=== PATIENT | female | born 1945 | race Caucasian/White ===

== ENCOUNTER 2019-05-20 16:35 | Emergency (ER) | payer MEDICARE, OTHER, MEDICAID ==
[~2019-05-20] VITALS: Ht 152.4 cm; Wt 65.8 kg
--- NOTE | 2019-05-20 16:43 | NUR ---
Dr Cruz is at bedside, MSE in progress
[2019-05-20] MEDS ORDERED: METF-440 PO (16:53)
[2019-05-20] MEDS ORDERED: METO-358 PO (16:53)
[2019-05-20] MEDS ORDERED: RANI150C4 PO (16:53)
[2019-05-20] MEDS ORDERED: ONDANSETRON 4 MG/2 ML VIAL ONE (16:53)
[2019-05-20] MEDS ORDERED: OLME40TA12 PO (16:53)
[2019-05-20] MEDS ORDERED: ASPI-605 PO (16:53)
[2019-05-20] MEDS ORDERED: DONE10TA11 PO (16:53)
[2019-05-20] MEDS ORDERED: ATOR20TA PO (16:53)
[2019-05-20] MEDS ORDERED: MEMA7CAP PO (16:53)
[2019-05-20] MEDS ORDERED: LEVO75TA7 PO (16:53)
[2019-05-20] MEDS ORDERED: FENO50CA2 PO (16:53)
[2019-05-20] MEDS ORDERED: SITA100T PO (16:53)
[2019-05-20 16:58] LABS: BASOPHILS # (AUTO) 0.1 K/uL (0.0-8.0); BASOPHILS % (AUTO) 0.6 % (0.0-2.0); EOSINOPHILS # (AUTO) 0.4 K/uL (0.0-0.7); EOSINOPHILS % (AUTO) 3.4 % (0.0-7.0); HEMATOCRIT 38.4 % (31.2-41.9); HEMOGLOBIN 13.2 g/dL (10.9-14.3); LYMPHOCYTES # (AUTO) 3.1 K/uL (20.0-40.0); LYMPHOCYTES % (AUTO) 30.1 % (20.5-51.5); MEAN CORPUSCULAR HEMOGLOBIN 29.6 uug (24.7-32.8); MEAN CORPUSCULAR HGB CONC 34 g/dL (32.3-35.6); MEAN CORPUSCULAR VOLUME 86.5 fL (75.5-95.3); MONOCYTES # (AUTO) 0.7 K/uL (2.0-10.0); MONOCYTES % (AUTO) 6.9 % (0.0-11.0); NEUTROPHILS # (AUTO) 6.1 K/uL (1.8-8.9); PLATELET COUNT (AUTO) 241 K/uL (179-408); RED BLOOD CELL COUNT(AUTO) 4.44 MIL/uL (3.63-4.92); WHITE BLOOD COUNT (AUTO) 10.4 K/uL (3.8-11.8)
[2019-05-20] MEDS ORDERED: ONDANSETRON 4 MG/2 ML VIAL IV ONE (17:00)
[2019-05-20 17:08] LABS: CREATININE 1.2 mg/dL (0.6-1.3); POTASSIUM 3.9 mmol/L (3.5-5.1)
[2019-05-20 17:13] LABS: BILIRUBIN,DIRECT 0.2 mg/dL (0.0-0.2); BILIRUBIN,TOTAL 0.6 mg/dL (0.2-1.0); TOTAL PROTEIN, SERUM 7.5 g/dL (6.4-8.2)
--- NOTE | 2019-05-20 17:41 | NUR ---
PO challenge started, monitored for vomiting
--- NOTE | 2019-05-20 17:57 | NUR ---
Patient passed po challenge. IV removed. Catheter intact and site benign. Pressure and 4x4 gauze applied to site. No bleeding noted. Patient discharged to home in stable conditon with steady gait. Written and verbal after care instructions given to patient and patient's son. Patient and family verbalized understanding and compliance of instructions.
== END 2019-05-20 17:59 | disposition home or self-care (01) ==
LOC: ER 16:37
DX: R11.2 Nausea with vomiting, unspecified (principal); T44.1X5A Adverse effect of other parasympathomimetics [cholinergics], initial encounter; T43.8X5A Adverse effect of other psychotropic drugs, initial encounter; I25.2 Old myocardial infarction; E78.5 Hyperlipidemia, unspecified; E11.9 Type 2 diabetes mellitus without complications; E03.9 Hypothyroidism, unspecified; Z79.82 Long term (current) use of aspirin; Z79.899 Other long term (current) drug therapy; Y92.89 Other specified places as the place of occurrence of the external cause
CPT/HCPCS: 36415; 71045; 80048; 80076; 82962; 84484; 85025; 87400; 93005; 96374; 99284; J2405; 70030-TC; A4663